=== PATIENT | female | born 1985 | race African-American/Black ===

== ENCOUNTER 2023-08-31 08:11 | Emergency (ER) | payer BC ==
[2023-08-31 08:39] VITALS: RESP 17; BMI 35.2
[2023-08-31] MEDS ORDERED: KETOROLAC TROMETHAMINE 15 MG/ML VIAL IM ONE (09:33)
[2023-08-31] MEDS ORDERED: DEXAMETHASONE SOD PHOSPHATE 10 MG/1 ML VIAL IM ONE (09:33)
[2023-08-31] MEDS ORDERED: ACETAMINOPHEN 500 MG TABLET (FP) PO ONE (09:33)
[2023-08-31] MEDS ORDERED: METHOCARBAMOL 750 MG TABLET PO ONE (09:33)
[2023-08-31] MEDS ORDERED: DEXAMETHASONE SOD PHOSPHATE 10 MG/1 ML VIAL ONE (09:57)
[2023-08-31] MEDS ORDERED: KETOROLAC TROMETHAMINE 15 MG/ML VIAL ONE (09:57)
[2023-08-31] MEDS ORDERED: METHOCARBAMOL 500 MG TABLET ONE (09:57)
[2023-08-31] MEDS ORDERED: ACETAMINOPHEN 500 MG TABLET (FP) ONE (09:57)
[2023-08-31 11:04] VITALS: BP 153/87; PULSE 82; TEMP 98.1
== END 2023-08-31 11:43 | disposition home or self-care (01) ==
LOC: JER 08:11
PROC: 3E023GC Introduction of Other Therapeutic Substance into Muscle, Percutaneous Approach (ICD-10-PCS; principal; 2023-08-31)
PROC: 3E0233Z Introduction of Anti-inflammatory into Muscle, Percutaneous Approach (ICD-10-PCS; 2023-08-31)
DX: M54.42 Lumbago with sciatica, left side (principal); M54.16 Radiculopathy, lumbar region; R20.2 Paresthesia of skin; R26.9 Unspecified abnormalities of gait and mobility
CPT/HCPCS: 72100-TC-FY; 99284-25; J1100